=== PATIENT | male | born 1980 | race Caucasian/White ===

== ENCOUNTER 2016-11-07 12:22 | Emergency (ER) | payer OTHER ==
[~2016-11-07] VITALS: Ht 170.2 cm; Wt 79.5 kg
[2016-11-07 12:25] VITALS: BP 147/97; PULSE 89; RESP 16; O2SAT 98
--- NOTE | 2016-11-07 12:44 | ED.REPORT ---
HPI-Psychiatric Illness Date of Service Nov 07, 2016 ED Provider: History of Present Illness: wants to stop drinking. started drinking on the weekend, a bottle of vodka on saturday plus additional beers, tried to taper down yesterday, not working. primary care in [place], unknown name. last drink 1 hour ago. Had stopped since April of last year per his report Nursing Notes Stated Complaint: ALCOHOL DETOX Chief Complaint: Substance Abuse Nursing Notes Reviewed: Yes Allergies: Coded Allergies: No Known Allergies (Unverified , 11/07/16) General Time Seen by MD: 12:44 Chief Complaint Other (etoh abuse) Hx Obtained From: Patient Onset Occurred: 2 days ago Context of Onset: Intoxicated, alcohol Risk-Psychiatric Illness Suicide Risk Stratification Suicide Risk Factors - Adult: : Alcohol use: Close associate suicide (ex girlfriend 10 months ago 11/07/2016)No: Access to firearms, Family Hx of Suicide , Previous attempt, Prior psych admission, Substance abuse RF Statements: Risk factors reviewed Past Medical History Past Medical History Denies: Asthma, Diabetes mellitus Past Surgical History knee surgery at 21 years old Smoking History Current Every Day Smoker (1/2 pack a day for 10 years) Social History has been in recovery till the weekend 11/07/2016 Drug Use: Denies drug use Occupation live with parents, no work or school at this time 11/07/2016 Ambulatory Status Independent Review of Systems Basic Review of Systems Eyes: Vision NL Musculoskeletal: No extremity swelling Hematologic: No bleeding Physical Exam Initial Vital Signs Vital Signs (First) Date Time Temp Pulse Resp B/P Pulse Ox O2 Delivery O2 Flow Rate FiO2 11/07/16 12:25 36 89 16 147/97 98 Room Air Initial VS: Reviewed, Vital signs normal Head / Eyes: Atraumatic, Normocephalic, PERRL ENT: Mucous membranes moist, Conjunctiva normal, No scleral icterus Neck: Supple, Non-tender, Full range of motion Respiratory: Breath sounds normal, Clear to auscultation, No respiratory distress Cardiovascular: Regular rate & rhythm, Heart sounds normal, Intact distal pulses Abdomen / GI: Soft, Non-tender, No guarding, No rebound, No distention Back: No CVA tenderness Lymphatic: No lymphadenopathy Extremities: Vascular intact, Neuro intact, No swelling, No tenderness Skin: Warm, Dry, No cyanosis General/Constitutional: Awake, Alert, No acute distress, Well appearing, Well developed, Well hydrated, Well nourished, Cooperative, Not toxic appearing Neurologic: Oriented X3, Speech NL, No motor deficits poor insight, Father with patient. Respiratory / Chest: Atraumatic, Breath sounds NL, Breath sounds = bilat, No respiratory distress Cardiovascular: Heart rate NL, Regular rhythm, Heart sounds NL Interpretation & Diagnostics Lab Results Interpretation Result Diagram: 11/07/16 1400 11/07/16 1400 Test 11/07/16 14:00 White Blood Count 4.7th/mm3 (3.8-10.1) Red Blood Count 4.94mil/mm3 (4.40-5.80) Hemoglobin 15.6g/dL (13.8-17.2) Hematocrit 43.8% (41.0-50.0) Mean Corpuscular Volume 88.7fL (81-100) Mean Corpuscular Hemoglobin 31.6pg (27.0-35.0) Mean Corpuscular Hemoglobin Concent 35.6% (32.0-37.0) Red Cell Distribution Width 11.8% (12.3-15.4) Platelet Count 152bil/L (150-400) Neutrophils (%) (Auto) 71.8% (40-74) Lymphocytes (%) (Auto) 18.9% (14-46) Monocytes (%) (Auto) 8.3% (4-12) Eosinophils (%) (Auto) 0.6% (0-5) Basophils (%) (Auto) 0.2% (0-3) Sodium Level 133mEq/L (134-144) Potassium Level 3.8mEq/L (3.5-5.2) Chloride Level 90mEq/L (97-108) Carbon Dioxide Level 23mmol/L (18-29) Blood Urea Nitrogen 9mg/dL (6-20) Creatinine 0.57mg/dL (0.76-1.27) Estimat Glomerular Filtration Rate 174mL/min (>59) Glucose Level 95mg/dL (60-99) Calcium Level 8.8mg/dL (8.5-10.1) Magnesium Level 1.8mg/dL (1.6-2.6) Total Bilirubin 0.7mg/dL (0.0-1.2) Aspartate Amino Transf (AST/SGOT) 50U/L (0-50) Alanine Aminotransferase (ALT/SGPT) 48U/L (0-44) Alkaline Phosphatase 68U/L (25-150) Total Protein 7.5g/dL (6.4-8.4) Albumin 4.8g/dL (3.4-5.0) Hold Choi Top Tube Received (Received) Alcohol, Quantitative 57mg/dL (0-10) Re-Eval/Medical Decision Med Decision/Clinical Course Patient with clear alcohol abuse, relased to the care of his father. They will decide together on what is the next step for his recovery. Discharge & Departure Impression: Primary Impression: Alcohol abuse Patient Instructions: Abuse of Alcohol (ED) Additional Instructions: At this time, there are no beds available at detox. Please avoid alcohol use. You are being provided a short course of ativen. Your father will be in charge of administration. Please work on a plan that works for you that gets you to sobriety. Referrals: [facility] EDSupervising Provider for APC: Joaquim Roberts MD copies to: [facility] Franaz Linn Nov 07, 2016 12:44
[2016-11-07 14:11] LABS: BASOPHILS % (AUTO) 0.2 % (0-3); EOSINOPHILS % (AUTO) 0.6 % (0-5); MONOCYTES % (AUTO) 8.3 % (4-12); Mean Corpuscular Hemoglobin 31.6 pg (27.0-35.0); Mean Corpuscular Volume 88.7 fL (81-100); NEUTROPHILS % (AUTO) 71.8 % (40-74); Platelet Count 152 bil/L (150-400)
[2016-11-07] MEDS ORDERED: LORazepam 2 mg Tablet ONE (14:26)
[2016-11-07] MEDS ORDERED: LORazepam 1 mg Tablet PO ONE (14:30)
[2016-11-07 14:34] LABS: Magnesium 1.8 mg/dL (1.6-2.6)
== END 2016-11-07 14:34 ==
LOC: EDBD 12:22 → SED 12:22
DX: F10.129 Alcohol abuse with intoxication, unspecified (principal); F17.200 Nicotine dependence, unspecified, uncomplicated
CPT/HCPCS: 36415; 80053; 81002; 83735; 85025; 99283; G0480

== ENCOUNTER 2016-11-13 12:11 | Emergency (ER) | payer OTHER ==
[~2016-11-13] VITALS: Ht 180.3 cm; Wt 63.6 kg
[2016-11-13 12:14] VITALS: BP 136/95; PULSE 106; RESP 18; O2SAT 96
[2016-11-13 12:56] LABS: BASOPHILS % (AUTO) 0.2 % (0-3); EOSINOPHILS % (AUTO) 0.5 % (0-5); MONOCYTES % (AUTO) 5.2 % (4-12); Mean Corpuscular Hemoglobin 31.9 pg (27.0-35.0); NEUTROPHILS % (AUTO) 61.5 % (40-74); Platelet Count 174 bil/L (150-400)
[2016-11-13 13:21] LABS: Magnesium 1.9 mg/dL (1.6-2.6)
[2016-11-13 14:43] VITALS: BP 142/89; PULSE 103; RESP 16; O2SAT 96
--- NOTE | 2016-11-13 15:52 | ED.REPORT ---
HPI-Overdose/Alcohol Toxicity Date of Service Nov 13, 2016 ED Provider: Farnaz Linn History of Present Illness: wants detox and wants inpatient, abd pain has decreased now. feels he has pancreatitis. Nursing Notes Stated Complaint: ALCOHOL WITHDRAWAL/ABDOMINAL PAIN Chief Complaint: Male Abdominal Pain Nursing Notes Reviewed: Yes Allergies: Coded Allergies: No Known Allergies (Unverified , 11/13/16) General Time Seen by Provider: 15:52 Chief Complaint Intoxicated, alcohol Hx Obtained From: Patient Symptom Duration: Since onset Risk-Overdose/Alcohol Tox )( Suicide Risk Stratification : Alcohol use: Substance abuseNo: Access to firearms, Close associate suicide, Family Hx of Suicide, Previous attempt, Prior psych admission RF Statements: Risk factors reviewed Past Medical History Past Medical History wants detox 11/13/2016 Denies: Asthma, Diabetes mellitus Past Surgical History knee surgery at 21 years old Smoking History Current Every Day Smoker Social History has been in recovery till the weekend 11/07/2016 seen 11/13/2016 has continued to drink Drug Use: Denies drug use Occupation live with parents, no work or school at this time 11/07/2016, 11/13/2016 Ambulatory Status Independent Review of Systems Basic Review of Systems : No dysuria, No frequency Allergy / Immune: No allergy Physical Exam Initial Vital Signs Vital Signs (First) Date Time Temp Pulse Resp B/P Pulse Ox O2 Delivery O2 Flow Rate FiO2 11/13/16 12:14 36.3 106 18 136/95 96 Room Air Initial VS: Reviewed, Vital signs normal Head / Eyes: Atraumatic, Normocephalic, PERRL ENT: Mucous membranes moist, Conjunctiva normal, No scleral icterus Neck: Supple, Non-tender, Full range of motion Back: No CVA tenderness Lymphatic: No lymphadenopathy Extremities: Vascular intact, Neuro intact, No swelling, No tenderness Skin: Warm, Dry, No cyanosis General/Constitutional: Awake, Alert, No acute distress Respiratory / Chest: Atraumatic, Breath sounds NL, Breath sounds = bilat, No respiratory distress Cardiovascular: Heart rate NL, Regular rhythm, Heart sounds NL Abdomen: Atraumatic, Soft, Non-tender, McBurney's non-tender Neurologic: Oriented X3, Speech NL, No motor deficits Psychiatric: Affect NL, Mood NL, Not suicidal Interpretation & Diagnostics Lab Results Interpretation Result Diagram: 11/13/16 1245 11/13/16 1245 Test 11/13/16 12:45 11/13/16 16:41 White Blood Count 4.3th/mm3 (3.8-10.1) Red Blood Count 4.79mil/mm3 (4.40-5.80) Hemoglobin 15.3g/dL (13.8-17.2) Hematocrit 43.1% (41.0-50.0) Mean Corpuscular Volume 90.0fL (81-100) Mean Corpuscular Hemoglobin 31.9pg (27.0-35.0) Mean Corpuscular Hemoglobin Concent 35.5% (32.0-37.0) Red Cell Distribution Width 12.8% (12.3-15.4) Platelet Count 174bil/L (150-400) Neutrophils (%) (Auto) 61.5% (40-74) Lymphocytes (%) (Auto) 32.6% (14-46) Monocytes (%) (Auto) 5.2% (4-12) Eosinophils (%) (Auto) 0.5% (0-5) Basophils (%) (Auto) 0.2% (0-3) Sodium Level 143mEq/L (134-144) Potassium Level 4.0mEq/L (3.5-5.2) Chloride Level 100mEq/L (97-108) Carbon Dioxide Level 27mmol/L (18-29) Blood Urea Nitrogen 12mg/dL (6-20) Creatinine 0.73mg/dL (0.76-1.27) Estimat Glomerular Filtration Rate 131mL/min (>59) Glucose Level 121mg/dL (60-99) Calcium Level 8.6mg/dL (8.5-10.1) Magnesium Level 1.9mg/dL (1.6-2.6) Total Bilirubin 0.3mg/dL (0.0-1.2) Aspartate Amino Transf (AST/SGOT) 79U/L (0-50) Alanine Aminotransferase (ALT/SGPT) 81U/L (0-44) Alkaline Phosphatase 66U/L (25-150) Total Protein 7.8g/dL (6.4-8.4) Albumin 5.0g/dL (3.4-5.0) Amylase Level 30U/L (28-100) Lipase 22U/L (13-60) Hold Choi Top Tube Received (Received) Alcohol, Quantitative 273mg/dL (0-10) Hold Urine Received (Received) Re-Eval/Medical Decision Med Decision/Clinical Course Checked with [facility], no beds available at detox at this time. No sign of pancreatitis at this time. Encouraged patient to recheck tomorrow. Discharge & Departure Impression: Primary Impression: Alcohol abuse Patient Instructions: Abuse of Alcohol (ED) Additional Instructions: At this time there are no beds available. You can check back tomorrow to see if one is available. Referrals: [facility] EDSupervising Provider for APC: Omar Shraif MD copies to: [facility] Farnaz Linn Nov 13, 2016 15:52
[2016-11-13 16:52] VITALS: BP 124/71; PULSE 83; RESP 14; O2SAT 94
[2016-11-13 16:53] VITALS: BP 124/71; PULSE 83; RESP 14; O2SAT 94
== END 2016-11-13 16:25 | disposition home or self-care (01) ==
LOC: SED 12:11
DX: F10.10 Alcohol abuse, uncomplicated (principal); F17.200 Nicotine dependence, unspecified, uncomplicated
CPT/HCPCS: 36415; 80053; 82075; 82150; 83690; 83735; 85025; 99283; G0480